=== PATIENT | female | born 1985 | race Caucasian/White ===

== ENCOUNTER 2017-12-24 22:57 | Emergency (ER) | payer MEDICARE, MEDICAID ==
[~2017-12-24] VITALS: Ht 552.4 cm; Wt 89.5 kg
[~2017-12-24 22:57] MED LIST: LURA120T PO; METH10TA4 PO
[2017-12-25 02:16] LABS: URINE HCG NEGATIVE (NEG)
[2017-12-25] MEDS ORDERED: HYDR-569 PO (04:00)
[2017-12-25] MEDS ORDERED: METH4TAB81 PO (04:00)
[2017-12-25] MEDS ORDERED: HYDROcodone/acetaminophen 10/325mg tab PO ONE (04:00)
[2017-12-25 04:12] VITALS: BP 144/82
== END 2017-12-25 04:18 | disposition home or self-care (01) ==
LOC: ER 22:58
DX: M43.16 Spondylolisthesis, lumbar region (principal); Z88.1 Allergy status to other antibiotic agents; W18.30XA Fall on same level, unspecified, initial encounter; Y93.89 Activity, other specified; Y92.89 Other specified places as the place of occurrence of the external cause; Y99.8 Other external cause status
CPT/HCPCS: 72074; 72100; 72128; 72131; 81025; 99285

== ENCOUNTER 2018-01-27 21:56 | Emergency (ER) | payer MEDICARE, MEDICAID ==
[~2018-01-27] VITALS: Ht 160 cm; Wt 86.5 kg
[~2018-01-27 21:56] MED LIST changes: +HYDR-4383 PO; +METH4TAB81 PO
[2018-01-27 22:04] VITALS: BP 138/70
== END 2018-01-27 23:29 | disposition home or self-care (01) ==
LOC: ER 21:57
DX: S40.021A Contusion of right upper arm, initial encounter (principal); G89.29 Other chronic pain; Z88.1 Allergy status to other antibiotic agents; Z79.899 Other long term (current) drug therapy; W22.8XXA Striking against or struck by other objects, initial encounter; Y93.89 Activity, other specified; Y92.89 Other specified places as the place of occurrence of the external cause; Y99.8 Other external cause status
CPT/HCPCS: 29125; 73090; 99284

== ENCOUNTER 2020-10-14 08:48 | Emergency (ER) | payer MEDICARE, MEDICAID ==
[~2020-10-14] VITALS: Ht 157.5 cm; Wt 87.0 kg
[2020-10-14] MEDS ORDERED: BENZ-16 PO (10:44)
[2020-10-14] MEDS ORDERED: LIDO20SO24 PO (10:44)
[2020-10-14 12:05] VITALS: BP 129/69
== END 2020-10-14 12:06 | disposition home or self-care (01) ==
LOC: ER 08:48
DX: R05 Cough (principal); Z20.822 Contact with and (suspected) exposure to COVID-19; R07.89 Other chest pain; J06.9 Acute upper respiratory infection, unspecified; J34.89 Other specified disorders of nose and nasal sinuses; G89.29 Other chronic pain; Z90.49 Acquired absence of other specified parts of digestive tract; Z98.891 History of uterine scar from previous surgery; Z98.84 Bariatric surgery status; Z79.899 Other long term (current) drug therapy; Z88.1 Allergy status to other antibiotic agents
CPT/HCPCS: 87635; 99283; C9803

== ENCOUNTER 2020-10-21 04:53 | Emergency (ER) | payer MEDICARE, MEDICAID ==
[~2020-10-21] VITALS: Ht 157.5 cm; Wt 87.3 kg
[~2020-10-21 04:53] MED LIST changes: +BENZ-16 PO; +LIDO20SO24 PO
[2020-10-21 05:11] VITALS: BP 132/78
[2020-10-21] MEDS ORDERED: acetaminophen 325mg tablet PO ONE (05:35)
[2020-10-21] MEDS ORDERED: ketorolac trometh. 30mg/ml inj. IM ONE (05:35)
--- NOTE | 2020-10-21 05:45 | NUR ---
Patient provided with water to swallow her pills- tolerated well, swallowed without difficulty. [place] provided for comfort.
[2020-10-21] MEDS ORDERED: ALBU8HFA PO (06:05)
== END 2020-10-21 06:12 | disposition home or self-care (01) ==
LOC: ER 04:53
DX: J20.9 Acute bronchitis, unspecified (principal); R52 Pain, unspecified; G89.29 Other chronic pain; Z88.1 Allergy status to other antibiotic agents; Z79.899 Other long term (current) drug therapy; E05.00 Thyrotoxicosis with diffuse goiter without thyrotoxic crisis or storm; Z90.49 Acquired absence of other specified parts of digestive tract; Z98.891 History of uterine scar from previous surgery; Z98.84 Bariatric surgery status
CPT/HCPCS: 71046; 93005; 96372; 99283; J1885

== ENCOUNTER 2020-10-24 15:59 | Emergency (ER) | payer MEDICARE, MEDICAID ==
[~2020-10-24] VITALS: Ht 157.5 cm; Wt 86.2 kg
[~2020-10-24 15:59] MED LIST changes: +ALBU8HFA PO
[2020-10-24] MEDS ORDERED: ipratropium/albuterol 3ml nebule NEB ONE (17:20)
[2020-10-24 17:23] VITALS: BP 120/80
[2020-10-24 18:06] LABS: BASOPHILS % (AUTO) 0.1 % (0-1); EOSINOPHILS % (AUTO) 0.3 % (0-6); HEMATOCRIT 38.1 % (35.0-45.0); HEMOGLOBIN 12.8 g/dl (12.0-16.0); LYMPHOCYTES # (AUTO) 1.8 X10'3 (1.1-4.8); LYMPHOCYTES % (AUTO) 25.4 % (21-51); MEAN CORPUSCULAR HEMOGLOBIN 27.1 PG (27.0-31.0); MEAN CORPUSCULAR HGB CONC 33.6 g/dL (33.0-36.5); MEAN CORPUSCULAR VOLUME 80.7 FL (78-98); MEAN PLATELET VOLUME 9.4 FL (7.4-10.4); MONOCYTES # (AUTO) 0.5 X10'3 (0-0.9); MONOCYTES % (AUTO) 6.5 % (2-12); NEUTROPHILS # (AUTO) 4.8 X10'3 (1.8-7.7); NEUTROPHILS % (AUTO) 67.7 % (42-75); PLATELET COUNT 185 X10'3 (140-440); RED BLOOD COUNT 4.71 X10'6 (4.20-5.60); RED CELL DISTRIBUTION WIDTH 14.3 % (11.5-14.5); WHITE BLOOD COUNT 7.1 X10'3 (4.5-11.0)
[2020-10-24 18:25] LABS: ALANINE AMINOTRANSFERASE 15 U/L (12-78); ALBUMIN/GLOBULIN RATIO 0.8 (1.1-1.5); ALKALINE PHOSPHATASE 129 IU/L (46-116); ANION GAP 10 (8-16); ASPARTATE AMINO TRANSFERASE 10 U/L (10-37); BILIRUBIN,TOTAL 0.3 MG/DL (0.1-1.0); BLOOD UREA NITROGEN 8 MG/DL (7-18); CALCIUM 8.1 MG/DL (8.5-10.1); CHLORIDE 107 MMOL/L (99-107); GLUCOSE 93 MG/DL (70-104); POTASSIUM 3.1 MMOL/L (3.5-5.1); SODIUM 141 MMOL/L (135-145); TOTAL CARBON DIOXIDE 24.5 MMOL/L (24-32); TOTAL PROTEIN 6.6 G/DL (6.4-8.2); eGFR > 90 ML/MIN
[2020-10-24] MEDS ORDERED: potassium Cl 20 mEq SR tablet PO STA (18:32)
[2020-10-24] MEDS ORDERED: PRED20TA PO (18:52)
[2020-10-24] MEDS ORDERED: GUAI1TBM19 PO (18:52)
[2020-10-24] MEDS ORDERED: AMOX-422 PO (18:52)
[2020-10-24] MEDS ORDERED: DOXY100C76 PO (19:05)
== END 2020-10-24 19:14 | disposition home or self-care (01) ==
LOC: ER 15:59
DX: J20.9 Acute bronchitis, unspecified (principal); R53.1 Weakness; R05 Cough; J44.9 Chronic obstructive pulmonary disease, unspecified; G89.29 Other chronic pain; F17.200 Nicotine dependence, unspecified, uncomplicated; Z90.49 Acquired absence of other specified parts of digestive tract; Z98.890 Other specified postprocedural states; Z88.1 Allergy status to other antibiotic agents; Z79.2 Long term (current) use of antibiotics; Z79.899 Other long term (current) drug therapy
CPT/HCPCS: 36415; 71045; 80053; 84443; 85025; 93005; 94640; 94760; 99285

== ENCOUNTER 2020-12-19 15:39 | Emergency (ER) | payer MEDICARE, MEDICAID ==
[~2020-12-19] VITALS: Ht 157.5 cm; Wt 84.1 kg
[~2020-12-19 15:39] MED LIST changes: -BENZ-16 PO; +GUAI1TBM19 PO
[2020-12-19 16:17] LABS: BASOPHILS % (AUTO) 0.5 % (0-1); EOSINOPHILS % (AUTO) 0.6 % (0-6); HEMATOCRIT 42.1 % (35.0-45.0); HEMOGLOBIN 13.8 g/dl (12.0-16.0); LYMPHOCYTES # (AUTO) 2.4 X10'3 (1.1-4.8); LYMPHOCYTES % (AUTO) 47.3 % (21-51); MEAN CORPUSCULAR HEMOGLOBIN 26.4 PG (27.0-31.0); MEAN CORPUSCULAR HGB CONC 32.8 g/dL (33.0-36.5); MEAN CORPUSCULAR VOLUME 80.6 FL (78-98); MEAN PLATELET VOLUME 9.4 FL (7.4-10.4); MONOCYTES # (AUTO) 0.4 X10'3 (0-0.9); MONOCYTES % (AUTO) 7.3 % (2-12); NEUTROPHILS # (AUTO) 2.3 X10'3 (1.8-7.7); NEUTROPHILS % (AUTO) 44.3 % (42-75); PLATELET COUNT 199 X10'3 (140-440); RED BLOOD COUNT 5.22 X10'6 (4.20-5.60); RED CELL DISTRIBUTION WIDTH 13.6 % (11.5-14.5); WHITE BLOOD COUNT 5.1 X10'3 (4.5-11.0)
[2020-12-19 16:32] LABS: ALANINE AMINOTRANSFERASE 22 U/L (12-78); ALBUMIN 3.2 G/DL (3.4-5.0); ALBUMIN/GLOBULIN RATIO 0.8 (1.1-1.5); ALKALINE PHOSPHATASE 145 IU/L (46-116); ANION GAP 10 (8-16); ASPARTATE AMINO TRANSFERASE 14 U/L (10-37); BILIRUBIN,TOTAL 0.3 MG/DL (0.1-1.0); BLOOD UREA NITROGEN 12 MG/DL (7-18); CALCIUM 8.4 MG/DL (8.5-10.1); CHLORIDE 107 MMOL/L (99-107); GLUCOSE 89 MG/DL (70-104); POTASSIUM 3.7 MMOL/L (3.5-5.1); SODIUM 141 MMOL/L (135-145); TOTAL CARBON DIOXIDE 23.7 MMOL/L (24-32); TOTAL PROTEIN 7.3 G/DL (6.4-8.2); eGFR > 90 ML/MIN
[2020-12-19] MEDS ORDERED: METH10TA6 PO (17:25)
[2020-12-19] MEDS ORDERED: ATEN-169 PO (17:25)
[2020-12-19 17:34] VITALS: BP 127/85
== END 2020-12-19 17:36 | disposition home or self-care (01) ==
LOC: ER 15:39
DX: E05.00 Thyrotoxicosis with diffuse goiter without thyrotoxic crisis or storm (principal); R42 Dizziness and giddiness; R55 Syncope and collapse; J44.9 Chronic obstructive pulmonary disease, unspecified; G89.29 Other chronic pain; Z90.49 Acquired absence of other specified parts of digestive tract; Z98.890 Other specified postprocedural states; Z88.1 Allergy status to other antibiotic agents; Z79.899 Other long term (current) drug therapy
CPT/HCPCS: 36415; 80053; 84443; 84484; 85025; 93005; 99284

== ENCOUNTER 2021-01-07 20:27 | Emergency (ER) | payer MEDICARE, MEDICAID ==
[~2021-01-07] VITALS: Ht 157.5 cm; Wt 88.6 kg
[~2021-01-07 20:27] MED LIST changes: +ATEN-169 PO; +METH10TA6 PO
[2021-01-07 20:51] VITALS: BP 123/78
== END 2021-01-08 04:27 | disposition home or self-care (01) ==
LOC: ER 20:28
DX: M25.562 Pain in left knee (principal); Z53.21 Procedure and treatment not carried out due to patient leaving prior to being seen by health care provider
CPT/HCPCS: 73564

== ENCOUNTER 2021-02-14 21:13 | Emergency (ER) | payer MEDICARE, MEDICAID ==
[~2021-02-14] VITALS: Ht 157.5 cm; Wt 88.6 kg
[~2021-02-14 21:13] MED LIST changes: -ATEN-169 PO; +METH-375 PO; -METH10TA6 PO
[2021-02-14 21:59] LABS: BASOPHILS % (AUTO) 0.4 % (0-1); EOSINOPHILS % (AUTO) 0.1 % (0-6); HEMATOCRIT 41.7 % (35.0-45.0); HEMOGLOBIN 14.1 g/dl (12.0-16.0); MEAN CORPUSCULAR HEMOGLOBIN 27.2 PG (27.0-31.0); MEAN CORPUSCULAR HGB CONC 33.9 g/dL (33.0-36.5); MEAN CORPUSCULAR VOLUME 80.3 FL (78-98); MEAN PLATELET VOLUME 9.3 FL (7.4-10.4); MONOCYTES # (AUTO) 0.4 X10'3 (0-0.9); MONOCYTES % (AUTO) 6.1 % (2-12); NEUTROPHILS # (AUTO) 2.3 X10'3 (1.8-7.7); NEUTROPHILS % (AUTO) 40.4 % (42-75); PLATELET COUNT 209 X10'3 (140-440); RED BLOOD COUNT 5.19 X10'6 (4.20-5.60); RED CELL DISTRIBUTION WIDTH 13.7 % (11.5-14.5); WHITE BLOOD COUNT 5.8 X10'3 (4.5-11.0)
[2021-02-14 22:10] LABS: ALANINE AMINOTRANSFERASE 22 U/L (12-78); ALBUMIN 3.1 G/DL (3.4-5.0); ALBUMIN/GLOBULIN RATIO 0.7 (1.1-1.5); ALKALINE PHOSPHATASE 134 IU/L (46-116); ANION GAP 10 (8-16); ASPARTATE AMINO TRANSFERASE 15 U/L (10-37); BILIRUBIN,TOTAL 0.3 MG/DL (0.1-1.0); BLOOD UREA NITROGEN 14 MG/DL (7-18); BUN/CREATININE RATIO 25.9 (6.6-38.0); CALCIUM 8.2 MG/DL (8.5-10.1); CHLORIDE 105 MMOL/L (99-107); CREATININE 0.54 MG/DL (0.40-0.90); GLUCOSE 99 MG/DL (70-104); POTASSIUM 4.1 MMOL/L (3.5-5.1); SODIUM 138 MMOL/L (135-145); TOTAL CARBON DIOXIDE 23.5 MMOL/L (24-32); TOTAL PROTEIN 7.4 G/DL (6.4-8.2); eGFR > 90 ML/MIN
[2021-02-14 23:02] LABS: PLATELET ESTIMATE NORMAL; TOTAL CELLS COUNTED 100
[2021-02-14 23:03] LABS: SMUDGE CELLS FEW
[2021-02-15 00:28] VITALS: BP 130/86
== END 2021-02-15 00:32 | disposition home or self-care (01) ==
LOC: ER 21:14
DX: R07.89 Other chest pain (principal); J44.9 Chronic obstructive pulmonary disease, unspecified; G89.29 Other chronic pain; Z90.49 Acquired absence of other specified parts of digestive tract; Z98.890 Other specified postprocedural states; Z88.1 Allergy status to other antibiotic agents; Z79.2 Long term (current) use of antibiotics; Z79.899 Other long term (current) drug therapy
CPT/HCPCS: 36415; 71045; 80053; 83880; 84484; 85007; 85025; 93005; 99285

== ENCOUNTER 2021-04-11 20:11 | Emergency (ER) | payer MEDICARE, MEDICAID ==
[~2021-04-11] VITALS: Ht 157.5 cm; Wt 86.4 kg
[2021-04-11 20:36] VITALS: BP 133/79
== END 2021-04-12 05:04 | disposition left against medical advice (07) ==
LOC: ER 20:12
DX: M54.9 Dorsalgia, unspecified (principal); Z53.21 Procedure and treatment not carried out due to patient leaving prior to being seen by health care provider

== ENCOUNTER 2025-04-01 17:10 | Emergency (ER) | payer MEDICARE, MEDICAID ==
[~2025-04-01] VITALS: Ht 157.5 cm; Wt 112.9 kg
[~2025-04-01 17:10] MED LIST changes: +LIDO15SO9 PO; -LIDO20SO24 PO
[2025-04-01 17:20] VITALS: BP 119/76; PULSE 78; RESP 16; TEMP 96.9; O2SAT 100
[2025-04-01 18:27] LABS: CREATININE 0.94 MG/DL (0.40-0.90); TOTAL CARBON DIOXIDE 28.7 MMOL/L (24-32); eCRCL 62 ML/MIN; eGFR 65 ML/MIN
[2025-04-01 18:36] LABS: MEAN PLATELET VOLUME 10.1 FL (7.4-10.4); RED CELL DISTRIBUTION WIDTH 14.8 % (11.5-14.5)
--- NOTE | 2025-04-01 21:13 | Physician Documentation ---
History of Present Illness ~ Chief Complaint: Weakness Stated Complaint: MULTIPLE MEDICAL ISSUES OK to notify your PCP?: Yes Primary Medical Doctor: None Source: patient Mode of Arrival: POV Exam Limitations: no limitations HPI Patient reports that she has been having dizziness and lightheadedness for the past 3 days. She does have a history of anemia. She reports that she is on her menstrual cycle currently and it is a very heavy flow. Medication Reconciliation Allergies: Coded Allergies: Cephalexin Monohydrate (Verified Allergy, Unknown, 04/01/25) Scheduled Guaifenesin/Dextromethorphan (Mucinex Dm ER 1,200-60 mg Tab), 1 TAB PO Q12H Lidocaine HCl (Lidocaine HCl Viscous), 15 ML PO Q3H Lurasidone Hcl (Latuda), 160 MG PO HS, (Reported) Methimazole (Methimazole), 1 TAB PO BID Methylphenidate Hcl (Ritalin), 10 MG PO DAILY, (Reported) Methylprednisolone (Medrol Dosepak), 4 MG PO DAILY Scheduled PRN Hydrocodone/Acetaminophen ([place] 5-325 Tablet), 1-2 TAB PO Q4HPRN PRN for pain albuterol inhaler (Pro-Air Inhaler), 2-4 PUFF PO Q4H PRN for cough Past Medical History Past Medical History: COPD, Graves' Disease, *MUSCULOSKELETAL*, Chronic Back Pain, *PSYCH* Past Surgical History: cholecystectomy, , gastric bypass, other Alcohol Use: None Drug Use: none Lives with: Family Lives In: Home Physical Exam Vital Signs: RN Vital Signs have been reviewed: Yes, Temperature: 96.9, Source: Temporal, Heart Rate: 78, Respiratory Rate: 16, BP: 119/76, Pulse Oximetry: 100, Weight: 112.900 Oxygen Flow Rate: 0 Pulse Oximetry Reflects: adequate oxygenation Progress Results/Orders Results/Orders Vital Signs 04/01/25 17:20 Temp 96.9 Pulse 78 Resp 16 B/P (MAP) 119/76 Pulse Ox 100 O2 Flow Rate 0 Laboratory Tests Test 04/01/25 17:34 White Blood Count 7.4 Red Blood Count 3.75 L Hemoglobin 10.9 L Hematocrit 34.0 L Mean Corpuscular Volume 90.5 Mean Corpuscular Hemoglobin 29.2 Mean Corpuscular Hemoglobin Concent 32.2 L Red Cell Distribution Width 14.8 H Platelet Count 247 Mean Platelet Volume 10.1 Neutrophils (%) (Auto) 67.0 Lymphocytes (%) (Auto) 27.8 Monocytes (%) (Auto) 3.3 Eosinophils (%) (Auto) 1.7 Basophils (%) (Auto) 0.2 Neutrophils # (Auto) 4.9 Lymphocytes # (Auto) 2.1 Monocytes # (Auto) 0.2 Eosinophils # (Auto) 0.1 Basophils # (Auto) 0.0 CBC Comment Sodium Level 139 Potassium Level 3.9 Chloride Level 105 Carbon Dioxide Level 28.7 Anion Gap 5 L Blood Urea Nitrogen 19 H Creatinine 0.94 H Estimated GFR/1.73 m2 65 BUN/Creatinine Ratio 20.2 H Glucose Level 109 H Calcium Level 8.6 Albumin 3.6 Chemistry Comments Medical Decision Making Findings Patient eloped from lobby after MSE. Departure Disposition: LEFT AWOL/ELOPED Referrals: NO PRIMARY CARE PROVIDER (PCP) Additional Comment Medical Screen Exam This patient recieved a medical screening examination. After reviewing the individual's medical complaints with presenting symptoms and performing an appropriate physical examination, it was determined that no immediate life- threatening emergency medical condition is present. This individual is also not a women having contractions. Signature Scribe Signature: . Attestation: Scribed for Emergency,Department by Martina Parikh NP . 04/01/25 21:13 Parts of this note were created using [employer] voice recognition software program. While efforts were made to correct any mistakes made by this voice recognition software program, nonsensical phrases may remain in this note. In addition, there may be errors and syntax, grammar, content and spelling. [facility] Apr 01, 2025 21:13
== END 2025-04-01 23:54 | disposition left against medical advice (07) ==
LOC: ER 17:11
DX: R42 Dizziness and giddiness (principal); J44.9 Chronic obstructive pulmonary disease, unspecified; G89.29 Other chronic pain; Z90.49 Acquired absence of other specified parts of digestive tract; Z88.1 Allergy status to other antibiotic agents; Z79.899 Other long term (current) drug therapy; Z53.21 Procedure and treatment not carried out due to patient leaving prior to being seen by health care provider
CPT/HCPCS: 36415; 80048; 85025; 99282; 99283